=== PATIENT | female | born 1935 | race Caucasian/White ===

== ENCOUNTER 2016-09-22 07:36 | Emergency (ER) | payer MEDICARE, BC ==
[2016-09-22] MEDS ORDERED: Ibuprofen TAB* 600 MG PO ONE (08:10)
--- NOTE | 2016-09-22 09:00 | RAD ---
Indication: Bilateral knee pain. AP standing, lateral, patellofemoral views of both knees are reviewed. The right knee demonstrates no fracture. No joint effusion is noted. Left knee demonstrates no fracture. No joint effusion is noted. IMPRESSION: Unremarkable bilateral knee.
--- NOTE | 2016-09-22 09:01 | RAD ---
Indication: Left hip pain. Single view the pelvis and 2 views of left hip demonstrates marked degenerative changes of left hip. There is no fracture noted. Moderately exam degenerative changes are noted of the left hip. There is joint space narrowing, subchondral cyst formation and sclerosis noted. IMPRESSION: Degenerative joint disease in the left hip.
--- NOTE | 2016-09-22 21:48 | ED ---
Cortes Kenney SooYoung, scribed for Sandra Aguayo MD on 09/22/16 at 0802 . Lower Extremity - HPI Summary HPI Summary: An 80 y/o F RAYMOND presents to ED with c/o acute knee pain, L worse than R onset this AM after a fall. Hx of chronic L hip and knee pain since 1997. She was walking with her cane this AM when her legs gave out, she fell onto her knees onto a hard bathroom floor. Per daughter, pt was on her knees on the floor for approx one hour. She was able to bear weight, ambulate with the assistance of EMS. Associated sx: LE weakness, R knee ecchymosis. Rates her pain as 0 out of 10 at bedside. Denies: L hip pain, dizziness, CP, LOC, head trauma, neck nor back pain. No daily meds, NKA, no PCP. She saw Dr. Dan about two years ago who gave her a shot in the hip, which did not help her; also previously saw PT and a chiropractor which she felt worsened her hip and knee pain. She has not seen an orthopedist regarding the chronic LE pain. - History of Current Complaint Chief Complaint: EDGeneral Stated Complaint: LT KNEE/HIP PAIN Time Seen by Provider: 09/22/16 07:50 Hx Obtained From: Patient, Family/Firewall Engineer - daughter Mechanism Of Injury: Fall From A Standing Position Onset of Pain: Immediate, Prior to Arrival Onset/Duration: Still Present Severity Initially: Mild Severity Currently: Mild Pain Intensity: 0 Pain Scale Used: 0-10 Numeric Timing: Constant Location: Is Discrete @ - knees, left hip Character Of Pain: Dull Associated Signs And Symptoms: Positive: Bruising - R knee, where she was kneeling and trying to get up off floor after falling, Weakness, Knee Pain, Other - neg: CP, head trauma, right hip pain, back pain, neck pain. Negative: Dizziness, Syncope Aggravating Factor(s): Nothing Alleviating Factor(s): Nothing Able to Bear Weight: Yes - Allergies/Home Medications Allergies/Adverse Reactions: Allergies Allergy/AdvReac Type Severity Reaction Status Date / Time No Known Allergies Allergy Verified 09/22/16 07:56 Home Medications: Home Medications NK [No Home Medications Reported] 09/22/16 [History Confirmed 09/22/16] PMH/Surg Hx/FS Hx/Imm Hx Previously Healthy: Yes - pt denies pmhx, is on no meds, has no PCP Sensory History: Denies: Hx Eye Prosthesis Opthamlomology History: Denies: Hx Eye Prosthesis - Surgical History Surgery Procedure, Year, and Place: Cholecystectomy Infectious Disease History: No Infectious Disease History: Denies: Traveled Outside the [place] in Last 30 Days - Family History Known Family History: Positive: Other - pos: [place] - Social History Occupation: Retired Lives: With Family - daughter Alcohol Use: None Hx Substance Use: No Substance Use Type: Reports: None Hx Tobacco Use: Yes Smoking Status (MU): Former Smoker Review of Systems Constitutional: Negative Negative: Chest Pain Negative: Shortness Of Breath Gastrointestinal: Negative Positive: Arthralgia - bilat knees - L worse than R, left hip pain , Other - neg : R hip pain, neck pain, back pain, head trauma Positive: Bruising - R knee Neurological: Other - neg: dizziness Positive: Weakness. Negative: Syncope Psychological: Normal All Other Systems Reviewed And Are Negative: Yes Physical Exam Triage Information Reviewed: Yes Vital Signs On Initial Exam: Initial Vitals Temp Pulse Resp BP Pulse Ox 97.8 F 78 20 150/64 97 09/22/16 07:41 09/22/16 07:41 09/22/16 07:41 09/22/16 07:41 09/22/16 07:41 Vital Signs Reviewed: Yes Appearance: Positive: Well-Appearing - appears younger than stated age, No Pain Distress, Well-Nourished Skin: Positive: Warm, Skin Color Reflects Adequate Perfusion, Erythema @ - right knee, Other - neg: rash Head/Face: Positive: Normal Head/Face Inspection. Negative: Cephalohematoma Eyes: Positive: Conjunctiva Clear ENT: Positive: Normal ENT inspection Neck: Positive: Supple Respiratory/Lung Sounds: Positive: Clear to Auscultation, Breath Sounds Present , Other - no respiratory distress Cardiovascular: Positive: RRR, Other - pulses normal, brisk capillary refill, distal pulses intact. Negative: Murmur, Leg Edema Left, Leg Edema Right Abdomen Description: Positive: Nontender, Soft. Negative: Distended, Guarding, Pulsatile Mass Musculoskeletal: Positive: Strength/ROM Intact, Other - point tenderness to lateral L hip; diffusely tender over L patella; FROM at hip and knee; knee ligaments are stable; NEG calf tenderness. Negative: Kofi Sign Left, Kofi Sign Right, Edema Left, Edema Right Neurological: Positive: Sensory/Motor Intact, Alert, Oriented to Person Place, Time, Facial Symmetry, Speech Normal Psychiatric: Positive: Normal Diagnostics - Vital Signs Vital Signs Temp Pulse Resp BP Pulse Ox 09/22/16 07:41 97.8 F 78 20 150/64 97 - Laboratory Lab Statement: Any lab studies that have been ordered have been reviewed, and results considered in the medical decision making process. - Radiology L HIP Xray Interpretation: No Acute Changes - IMPRESSION: Degenerative joint dz in L hip. Radiology Interpretation Completed By: Radiologist BILAT KNEES Xray Interpretation: No Acute Changes - Unremarkable bilat knee Radiology Interpretation Completed By: Radiologist Re-Evaluation - Re-Evaluation 1 Re-Evaluation Time: 11:36 Change: Unchanged Comment: Discussing XR results with pt and daughter and dispo. Pt voiced understanding. Lower Extremity Course/Dx - Course Course Of Treatment: Allergies noted. Hypertensive BP reading (150/94); patient referred to PCP within 1 day-4 weeks for follow-up. Pt is an 80 y/o F BIBA presenting with c/o acute knee pain, L worse than R onset this AM after a fall. Hx of chronic L hip and knee pain since 1997. Walking with her cane when her legs gave out, fell onto her knees onto hard floor. Per daughter, pt was on her knees on the floor for approx one hour. She was able to bear weight, ambulate with the assistance of EMS. Associated sx: LE weakness, R knee ecchymosis. Rates her pain as 0 out of 10 at bedside. Denies: R hip pain, dizziness, CP, LOC , head trauma, neck nor back pain. No daily meds, NKA, no PCP. She has not seen an orthopedist regarding the chronic LE pain. Pt given Motrin in ED. L hip and bilat knee XRs showed no acute findings. Will D/C home without meds, pt given walker. F/U with ortho and PCP. - Diagnoses Provider Diagnoses: Elevated blood pressure reading without diagnosis of hypertension, Fall from standing, Degenerative joint disease of left hip, Bilateral knee pain Discharge - Discharge Plan Condition: Stable Disposition: HOME Patient Education Materials: Knee Pain (ED), Arthritis (ED) Referrals: [facility] [place] [facility] REFERRAL [Outside] - As Soon As Possible Bijan Brown MD [Medical Doctor] - 1 Week No Primary Care Phys,NOPCP [Primary Care Provider] - (Follow up within 1 day to 4 weeks for blood pressure evaluaton.) Additional Instructions: Your blood pressure reading today was 150/94, which is HYPERTENSIVE. Establish with a new primary care provider and follow-up within 4 weeks for blood pressure readings and further evaluation. If you cant find a provider, try to check your blood pressure on your own and see if its above 120/80. If so, follow up for further evaluation and treatment. Your xrays show degenerative changes. You should follow up with orthopedics for further evaluation and treatment. Use the cane and walker for ambulation. You may continue tylenol or ibuprofen for pain. Return to the ED if any new or worsening symptoms. The documentation as recorded by the Cortes kent SooYoung accurately reflects the service I personally performed and the decisions made by , Sandra Aguayo MD.
== END 2016-09-22 12:14 | disposition home or self-care (01) ==
LOC: ED 07:36
DX: R03.0 Elevated blood-pressure reading, without diagnosis of hypertension (principal); M16.12 Unilateral primary osteoarthritis, left hip; M25.562 Pain in left knee; Z87.891 Personal history of nicotine dependence; M25.561 Pain in right knee
CPT/HCPCS: 99282; A9270-GY

== ENCOUNTER 2016-11-09 11:00 | Inpatient (IN) | payer MEDICARE, BC ==
--- NOTE | 2016-10-27 22:33 | HP ---
HISTORY AND PHYSICAL: DATE OF SURGERY: 11/09/16 DATE OF OFFICE VISIT: 10/27/16 SURGEON: Lisa Sharpe MD * (DICTATED BY LILIANA ALEXIS) PROCEDURE: Left total hip arthroplasty. CHIEF COMPLAINT: Left hip pain. HISTORY OF PRESENT ILLNESS: Ms. Bear is an 81-year-old female with complaints of left hip pain. She has failed conservative management, has elected to proceed with a left total hip arthroplasty, which is scheduled for with Dr. Sharpe. PAST MEDICAL HISTORY: Heart murmur. PAST SURGICAL HISTORY: Cholecystectomy. CURRENT MEDICATIONS: None. ALLERGIES: None. FAMILY HISTORY: Cancer and dementia. SOCIAL HISTORY: She is an 81-year-old female, who lives with her daughter. She does not smoke, use drugs, or alcohol. REVIEW OF SYSTEMS: A complete 14-point review of systems was reviewed with the patient, was all negative or noncontributory. PHYSICAL EXAMINATION GENERAL: She is well developed, well nourished, in no acute distress. VITAL SIGNS: She stands 5 feet 6 inches tall, weighs 154 pounds, her blood pressure is 140/72, heart rate is 65. HEENT: Normocephalic, atraumatic. NECK: Supple. No palpable lymph nodes. PULMONARY: Lungs are clear to auscultation bilaterally. CARDIO: Regular rate and rhythm. Strong S1 and S2. ABDOMEN: Soft, nontender, nondistended. NEUROLOGIC: She is alert and oriented x3. Cranial nerves II through XII are intact. MUSCULOSKELETAL: Left lower extremity, the skin is intact. There are no open wounds or abrasions. She has decreased range of motion over the left hip. She walks with antalgic type gait. Her lower extremity muscle group strength is intact at 5/5. She has 2+ dorsalis pedis pulses and intact sensation. ASSESSMENT AND PLAN: Ms. Bear is an 81-year-old female with complaints of left hip pain secondary to advanced osteoarthritis. She has failed conservative management and has elected to proceed with a left total hip arthroplasty, which is scheduled for 11/09/[address] Sharpe discussed the risks and benefits of the surgery and all of her questions were answered. Percocet, Coumadin and Colace were sent to her pharmacy for postoperative pain control and DVT prophylaxis. She will see Dr. Sharpe back in 2 weeks after the surgery. LILIANA ALEXIS [id number]/[facility] #: [id number] [facility]ENTER[facility]
[~2016-11-09 11:00] MED LIST: Buffered Lidocaine 0.9% SYRIN* 5 ML/SYR SYRINGE INTRADERM ONE; Famotidine IV* 10 MG/ML 2 ML (20 mg) IV ONE
[2016-11-09] MEDS ORDERED: Famotidine IV* 10 MG/ML 2 ML (20 mg) ONE (11:36)
[2016-11-09] MEDS ORDERED: ceFAZolin 2 GM PREMIX (*) 50 ML IVPB ONE (11:37)
[2016-11-09] MEDS ORDERED: Lidocaine 2% PF * 5 ML VIAL ONE (13:18)
[2016-11-09] MEDS ORDERED: Ondansetron INJ* 2 MG/ML VIAL ONE (13:18)
[2016-11-09] MEDS ORDERED: Ketorolac INJ* 30 MG/ML 1 ML VIAL ONE (13:18)
[2016-11-09] MEDS ORDERED: KETAMINE HCL* 50 MG/ML 10 ML VIAL ONE (13:18)
[2016-11-09] MEDS ORDERED: Cisatracurium* 2 MG/ML MDV 5 ML ONE (13:18)
[2016-11-09] MEDS ORDERED: Propofol* 10 MG/ML 20 ML BTL IV PUSH ONE (13:18)
[2016-11-09] MEDS ORDERED: Dexamethasone IV* 4 MG/ML 1 ML (4 MG) ONE (13:18)
[2016-11-09] MEDS ORDERED: fentaNYL* 50 MCG/ML 2 ML VIAL (100 MCG VIAL) ONE (13:18)
[2016-11-09] MEDS ORDERED: Midazolam* 1 MG/ML 5 ML VIAL (5 MG) ONE (13:19)
[2016-11-09] MEDS ORDERED: EPHEDrine (Pressors)* 50 MG/ML VIAL ONE (14:26)
[2016-11-09] MEDS ORDERED: diPHENhydraMINE IV* 50 MG/ML 1 ml VIAL (BENADRYL) IV PRN (15:17)
[2016-11-09] MEDS ORDERED: Magnesium Hydroxide LIQ* 30 ML UDC PO PRN (15:17)
[2016-11-09] MEDS ORDERED: Ondansetron INJ* 2 MG/ML VIAL IV PRN ×2 (15:17→15:34)
[2016-11-09] MEDS ORDERED: Temazepam CAP* 15 MG PO PRN (15:17)
[2016-11-09] MEDS ORDERED: Polyethylene Glycol 3350* 17 GM PACKET PO PRN (15:17)
[2016-11-09] MEDS ORDERED: oxyCODONE/Acetamin 5/325 MG* TAB PO PRN ×2 (15:17)
[2016-11-09] MEDS ORDERED: oxyCODONE TAB* 5 MG TAB PO PRN (15:17)
[2016-11-09] MEDS ORDERED: Morphine INJ* 2 MG/ML 1 ML SYRINGE (TWO MG - NEW SYRINGE VERSION) IV PRN (15:17)
[2016-11-09] MEDS ORDERED: Bupivacaine 0.5% SDV PF* 30 ML VIAL ONE (15:24)
[2016-11-09] MEDS ORDERED: fentaNYL* 50 MCG/ML 2 ML VIAL (100 MCG VIAL) IV PRN (15:34)
[2016-11-09] MEDS ORDERED: HYDROmorphone INJ* 1 MG/ML CARPUJECT SYRINGE IV PRN (15:34)
[2016-11-09] MEDS ORDERED: HYDROmorphone INJ* 1 MG/ML CARPUJECT SYRINGE ONE (17:18)
[2016-11-09] MEDS ORDERED: oxyCODONE TAB* 5 MG TAB ONE (17:18)
--- NOTE | 2016-11-09 18:18 | RAD ---
INDICATION: Status post left hip arthroplasty TECHNIQUE: An AP view of the pelvis was obtained. FINDINGS: The hip prosthesis is anatomically aligned in the AP projection. Visualized bones are intact and appropriately aligned. IMPRESSION: Anatomic alignment of left hip prosthesis in the AP projection.
--- NOTE | 2016-11-09 18:19 | RAD ---
INDICATION: Status post left hip arthroplasty COMPARISON: Preoperative x-ray dated September 22, 2016 TECHNIQUE: 2 views of the left hip were obtained. FINDINGS: The left hip prosthesis is anatomically aligned in the AP and lateral projections. There is no periprostatic fracture or loosening. IMPRESSION: Anatomic alignment of recently placed left hip prosthesis.
[2016-11-09] MEDS: Enoxaparin(*) 30 MG/0.3 ML SYR SUBCUT SCH (18:31)
[2016-11-09] MEDS: Warfarin TAB(*) 6 MG PO ONE ×2 (18:31→18:34)
[2016-11-09] MEDS: Acetaminophen TAB* 325 MG PO PRN (20:19)
[2016-11-09] MEDS: Docusate CAP* 100 MG PO SCH (20:20)
[2016-11-09] MEDS: ceFAZolin 1 GM VIAL(*) 1 GM in NS 0.9% 50 ML* 50 ML IVPB SCH (20:20)
--- NOTE | 2016-11-09 21:16 | RAD ---
CPT II Codes: 6045F INDICATION: Left hip arthroplasty TECHNIQUE: Intraoperative fluoroscopy was provided during left hip arthroplasty. FINDINGS: A single AP film depicts anatomic alignment of the acetabular component and femoral shaft component of a left hip prosthesis. The femoral head prosthesis is currently absent. Fluoroscopy time: 1 second IMPRESSION: As above.
[2016-11-10] MEDS: Acetaminophen TAB* 325 MG PO PRN ×3 (00:21→08:36)
[2016-11-10] MEDS: ceFAZolin 1 GM VIAL(*) 1 GM in NS 0.9% 50 ML* 50 ML IVPB SCH ×2 (04:17→11:29)
--- NOTE | 2016-11-10 05:28 | OP ---
OPERATIVE REPORT: DATE OF OPERATION: 11/09/16 DATE OF : 31 SURGEON: Lisa Sharpe MD PROMOTION WRITER: LILIANA Zarate MsFaith Simpson did help throughout the procedure with preparation of the leg, wound retraction, manipu lation of the hip, and wound closure. ANESTHESIOLOGIST: Dr. Barnett. ANESTHESIA: General. PRE-OP DIAGNOSIS: Severe end stage degenerative osteoarthritis of the left hip joint. POST-OP DIAGNOSIS: Severe end stage degenerative osteoarthritis of the left hip joint. OPERATIVE PROCEDURE: Left total hip arthroplasty. HARDWARE USED: This is an uncemented Meño total hip arthroplasty hardware. For the cup, a 50B T ritanium cluster hole shell. A single 25-mm cancellous bone screw was used. For the insert a Tride nt X3 0-degree polyethylene insert 36B. For the femur, a size 2 Accolate TMZF for the 132-degree ne ck. For the head, a Biolox delta ceramic D40 femoral head 36 -2.5. COMPLICATIONS: None. EBL: 250 cc. SPECIMENS: Femoral head and acetabular reaming sent to pathology. BRIEF HISTORY/INDICATION: Ms. Bear is an 81-year-old female with years of increasingly severe lef t hip pain. She failed conservative treatment with antiinflammatory pain medications, physial thera py, and ambulatory assistive devices. X-rays confirmed ecna-tz-hais severe end-stage arthritis of t he hip. Due to continued pain and decreased quality of life she elected to undergo left total hip a rthroplasty. Informed consent was obtained from the patient. She understood the risks of the proce dure, included but were not limited to bleeding, infection, damage to nearby structures, continued p ain, need for further surgery, intraoperative fracture, nerve palsy, hardware failure or loosening, dislocation, leg length discrepancy, stroke, heart attack, blood clot and . She wished to proc eed. INTRAOPERATIVE FINDINGS: Intraoperatively the patient was noted to have severe end- stage arthritis . She did have complete loss of cartilage and subchondral sclerosis as well as cyst formation. DESCRIPTION OF PROCEDURE: Ms. Bear was identified in the preanesthesia unit. Her left lower extre mity was marked as the correct operative side. Informed consent was signed and placed in the chart. The patient was taken to the operating room and placed under general anesthesia. A Coto catheter was placed. She was placed in the right lateral decubitus position on the PEG board. All bony pro minences were well padded. Left lower extremity was prepped and draped in the usual sterile fashion . Preop time-out was made to correctly identity the patient's side and site. Appropriate periopera tive antibiotics were given within 1 hour of incision. A 10-cm posterior hip incision was made with a 10 blade. This was carried down to the lateral fasci al layer. Lateral fascial layer was then incised in line with the skin incision. A Charnley retrac tor was placed. The piriformis and conjoint tendons were identified and elevated off the posterolat eral femur using electrocautery. These were tagged with #5 Ethibonds. Next, the electrocautery was used to make a posterolateral capsular flap and this was also tagged wi th #5 Ethibonds. The hip was carefully dislocated. Lesser troch to the center of the femoral head measured 52 mm. O scillating saw was used to make appropriate femoral neck cut. Femoral head was sent to pathology. The femur was carefully retracted anteriorly. After appropriate placement of retractor the acetabul um was visualized. Long-handled knife was used to remove any remaining labrum from the acetabular r im. The acetabulum sequentially reamed up to a size #49. Good bleeding subchondral bone bed was ob tained. A 49 trial had excellent fit and stability. Final implant chosen was a Tritanium cluster h ole shell size 50D. This was impacted into the acetabulum without difficulty. Good stability was o btained. Anteversion and abduction angle were satisfactory. A single 25-mm screw was placed in the superior posterior quadrant for extra stability. The liner chosen was a Trident X3 0 degree polyet hylene insert 36B. Stability of the liner was checked and rechecked and noted to be stable. Attention was turned next to preparation of the femur. Proximal femoral canal was entered using a c anal finder. The femur was sequentially broached up to a size 2. Size 2 broach had good fit and ant eversion. A 132-neck trial was placed as well as a 36 +0 femoral head trial. Lesser troch to the c enter of the femoral head measured 52 mm. The hip was reduced and taken through a range of motion. The hip was stable in all positions. There was good soft tissue tension and appropriate leg length s. The hip was carefully dislocated. All trials were carefully removed. Final implant chosen was an A ccolade TMZF size 2 with a 132-degree neck. This was carefully impacted into the femoral canal with out difficulty. There was good stability. The implant did sit up 2 mm higher than the broach. The refore final implant chosen for the head was a ceramic Biolox delta V4 V36 -2.5 femoral head. This w as impacted on to the femoral neck without difficulty. Lesser troch to center of the femoral head m easured 52 mm. The hip was reduced and taken through a range of motion. The hip was stable in all positions. Soft tissue tension and leg lengths were deemed to be appropriate. The hip was copiously irrigated with sterile saline. Previously tagged capsule and tendons were reapproximated to the posterolateral fe mur through 2 trochanteric drill holes. The hip was copiously irrigated with sterile saline. Lateral fascia layer was closed using interrup jaime #1 Vicryl. The rest of the incision was closed in a layered fashion using 2-0 Vicryl. Skin was closed using running 3-0 Monocryl and Dermabond. Adaptic, 4x4s, and paper tape were used to cover the incision. 0.5% Marcaine was used for local anesthetic. The patient's anesthesia was carefully reversed without difficulty. She was taken to the PACU in stable condition. Intended weightbearing will be weightbearing as tolerated. Intended DVT prophylaxis will be Coumadin with a Lovenox bridge . [id number]/[facility] #: [id number]
--- NOTE | 2016-11-10 06:18 | CONS ---
CC: Dr. Dan; Dr. Sharpe * CONSULTATION REPORT: DATE OF ADMISSION: 11/09/16 DATE OF CONSULT: 11/09/16 PRIMARY CARE PROVIDER: Dr. Dan REQUESTING PHYSICIAN FOR CONSULT: Dr. Sharpe ATTENDING PHYSICIAN WHILE IN THE HOSPITAL: Dr. Edwin Ruth (report dictated by Jonathan Guillermo NP). REASON FOR MEDICAL CONSULTATION: Evaluation and medical management of comorbid medical conditions. HISTORY OF PRESENT ILLNESS: Refer to Dr. Sharpe's H and P for further details. In short, Ms. Bear is an 81-year-old female patient with really no significant past medical history. She was recently found to have a murmur, had extensive workup preoperatively for this. Although, she does state that she has been having significant amount of pain in her hip, particularly on the left side. She has failed conservative therapy. She was affecting her activities of daily living and it was felt she would benefit from a total hip replacement. So she was evaluated by Dr. Sharpe, it was felt that a total hip would be necessary so she underwent the procedure today electively. The patient was evaluated in the PACU. She had general anesthetic. She is not really complaining of any pain currently. She is not offering any complaints, pretty drowsy. She denies any chest pain or shortness of breath and again will awaken to her name, but then quickly falls back asleep. Because of her history of her heart murmur we were asked to evaluate in consult. PAST MEDICAL HISTORY: Significant for: 1. Osteoarthritis. 2. She has a history of aortic stenosis. PAST SURGICAL HISTORY: She has had a laparoscopic cholecystectomy and now a total hip arthroplasty. MEDICATIONS: Home medications denied. ALLERGIES: Allergies to medications denied. FAMILY HISTORY: Unable to be obtained currently. SOCIAL HISTORY: She does not smoke. She does not drink. Surrogate decision maker is her daughter. REVIEW OF SYSTEMS: It is limited because she is still drowsy, but she is not having any chest pain or shortness of breath. The 14-systems attempted, but unable to obtain completely because of her recent general anesthetic. PHYSICAL EXAMINATION: Reveals vital signs blood pressure 145/63, pulse 70, respirations 16, O2 sat 98%, temperature 98.1. General: At this time, Ms. Bear is an 81-year-old female patient. She is in the PACU bed. She appears to be well nourished, well developed. HEENT: Head is atraumatic. Eyes: EOMs are intact. Sclerae anicteric. Not pale. Neck: Supple. Throat: Oral mucosa appears to be dry. No oropharyngeal erythema. Heart: Sounds S1 and S2. Regular rate and rhythm. She did have a grade 2-3 aortic murmur. Lungs: Clear to auscultation bilaterally. Abdomen: Soft, flat, nontender. Bowel sounds hypoactive. Extremities: Distal CSM checks were intact. She is moving all four extremities. Neurologically, she is very drowsy. She will awaken to her name. She will answer for some simple questions. Speech clear. Tongue was midline. No facial droop. She had no gross obvious focal deficits. Skin: Intact with the exception she has an excision to her right hip, clean, dry and intact. LABORATORY DATA/IMAGING STUDIES: Preop labs, WBC is 7.2, RBC of 4.81, hemoglobin of 14.3, hematocrit of 43, platelet count of 250, INR was 0.93. Sodium was 137, potassium 4.3, chloride 102, bicarb 29, BUN 11, creatinine 0.94. AST 18 and ALT 9. She had a preop x-ray which revealed no active cardiopulmonary disease. She had a preop stress test which showed normal cardiac stress test. She had a preop echo, shows an EF of 65% to 70%. She had diastolic dysfunction. She had mild-to- moderate aortic valve stenosis. She had severe aortic valve leaflet thickening. Severe calcification, trace mitral regurg, [id number] pulmonary hypertension. EKG preop shows a normal sinus rhythm, rate of 76, no ST elevations or T-wave inversions. Old medical records were reviewed. ASSESSMENT: Ms. Bear is an 81-year-old female patient coming in to the orthopedic services today for an elective total hip replacement. We were asked to evaluate in consult. RECOMMENDATIONS: At this point are: 1. Status post left total hip replacement, defer the management to Dr. Sharpe and her team. 2. Systolic ejection murmur, again I suspect this is probably from mild-to- moderate aortic stenosis. I would recommend follow up with her primary director of property management, and close follow up with her PCP. The plan will be not to make her hypotensive, to try to keep her slightly hypertensive at this point. We will continue to follow closely. She does not appear to have any symptoms from this. 3. Osteoarthritis, follow with primary. 4. DVT prophylaxis: We will defer to primary team. 5. Code status: Full code. 6. Fluid, electrolytes, and nutrition: She can have a regular diet. TIME SPENT: Time spent on the consult was 60 minutes, greater than half that time was spent [id number] with the patient obtaining my history and physical, the other half time was spent going over the plan of care with the patient and implementing the plan of care. I did discuss the plan of care with my attending, Dr. Ruth; he is in agreement. JONATHAN GUILLERMO NP [id number]/[facility] #: [id number] MTDBong
[2016-11-10 06:36] LABS: Hematocrit 31 % (35-47); Hemoglobin 10.4 g/dl (12.0-16.0)
[2016-11-10 06:49] LABS: Calcium 8.3 mg/dL (8.6-10.3); Potassium 4.5 mmol/L (3.5-5.0)
[2016-11-10] MEDS: Docusate CAP* 100 MG PO SCH ×2 (08:36→21:24)
--- NOTE | 2016-11-10 08:41 | PN ---
Subjective Date of Service: 11/10/16 Interval History: Hospitalist Progress Note POD # 1 Elective Total Left Hip Patient seen and examined at bedside. Presently sitting in cardiac chair finishing breakfast. Nausea has resolved. Nurses report some delirium during the night. Only requiring Tylenol for pain control at this point. Patient has already walked from her room to the [address] way with the aid of a walker and tolerated it well. Family History: Unchanged from Admission Social History: Unchanged from Admission Past Medical History: Unchanged from Admission Objective Active Medications: Acetaminophen (Tylenol Tab*) 650 mg PO Q4H PRN PRN Reason: PAIN OR TEMPERATURE Diphenhydramine HCl (Benadryl Iv*) 25 mg IV Q6H PRN PRN Reason: itching Docusate Sodium (Colace Cap*) 100 mg PO BID MK Enoxaparin Sodium (Lovenox(*)) 30 mg SUBCUT Q24H MK Cefazolin Sodium 1 gm/ Sodium (Chloride) 50 mls @ 200 mls/hr IVPB Q8H [facility] Stop: 11/10/16 12:14 Lactulose (Lactulose*) 30 ml PO Q6H PRN PRN Reason: constipation Magnesium Hydroxide (Milk Of Magnesia Liq*) 30 ml PO Q6H PRN PRN Reason: constipation Morphine Sulfate (Morphine Inj (Syringe)*) 2 mg IV Q2H PRN PRN Reason: PAIN Ondansetron HCl (Zofran Inj*) 4 mg IV Q6H PRN PRN Reason: nausea Oxycodone HCl (Roxycodone Tab*) 10 mg PO Q4H PRN PRN Reason: PAIN Oxycodone/Acetaminophen (Percocet 5/325 Tab*) 1 tab PO Q4H PRN PRN Reason: PAIN Oxycodone/Acetaminophen (Percocet 5/325 Tab*) 2 tab PO Q4H PRN PRN Reason: PAIN Pharmacy Profile Note (Coumadin Daily Reminder*) 1 note FOLLOW UP 1700 [facility] Polyethylene Glycol/Electrolytes (Miralax*) 17 gm PO DAILY PRN PRN Reason: Constipation Temazepam (Restoril Cap*) 15 mg PO BEDTIME PRN PRN Reason: INSOMNIA Warfarin Sodium (Coumadin Tab(*)) 6 mg PO ONCE@1700 MK PRN Reason: Protocol Stop: 11/10/16 17:01 Vital Signs: Temp Pulse Resp BP Pulse Ox 98.2 F 77 16 105/51 97 11/10/16 07:32 11/10/16 07:32 11/10/16 08:41 11/10/16 07:32 11/10/16 08:41 11/10/16 11/10/16 11/10/16 06:20 06:20 06:20 Hgb 10.4 L Hct 31 L INR (Anticoag Therapy) 1.06 Sodium 136 Potassium 4.5 Chloride 105 Carbon Dioxide 27 Anion Gap 4 BUN 12 Creatinine 0.86 Est GFR ( Amer) 81.0 Est GFR (Non-Af Amer) 63.0 BUN/Creatinine Ratio 14.0 Glucose 122 H Calcium 8.3 L Oxygen Devices in Use Now: None Appearance: Elderly female sitting up in cardiac chair enjoying breakfast Eyes: No Scleral Icterus, PERRLA Ears/Nose/Mouth/Throat: NL Teeth, Lips, Gums, Clear Oropharnyx, Mucous Membranes Moist Neck: NL Appearance and Movements; NL JVP, Trachea Midline, No Thyroid Enlargement, Masses Respiratory: Symmetrical Chest Expansion and Respiratory Effort Cardiovascular: - - positive Systolic- ejection murmur with a history of aortic stenosis Abdominal: NL Sounds; No Tenderness; No Distention Lymphatic: No Cervical Adenopathy Extremities: No Edema, No Clubbing, Cyanosis, - - Positive pedal pulses, extremeties warm with good mobility Skin: No Rash or Ulcers, - - dressing to left hip, dry & intact, no drainage noted Neurological: Alert and Oriented x 3, - - Nursing states some delerium during the night, appears to have cleared at this time Lines/Tubes/Other Access: Clean, Dry and Intact Coto - Nursing states will d/c this am, Clean, Dry and Intact Peripheral IV - Left arm Saline locked Nutrition: Taking PO's - Nausea has improved Result Diagrams: 11/10/16 06:20 11/10/16 06:20 Diagnostic Imaging: INDICATION: Status post left hip arthroplasty TECHNIQUE: 2 views of the left hip were obtained. FINDINGS: The left hip prosthesis is anatomically aligned in the AP and lateral projections. There is no periprostatic fracture or loosening. IMPRESSION: Anatomic alignment of recently placed left hip prosthesis. Assess/Plan/Problems-Billing Assessment: Mrs. Bear is an 81 year old female who we were asked to consult due to multiple co-morbidities. POD #1. Nausea has resolved. Ambulated from her room to the hallway prior to breakfast with the help of physical therapy and a walker. - Patient Problems (1) Status post total hip replacement, left Current Visit: Yes Comment: POD # 1 managed by surgery (2) Systolic ejection murmur Comment: History of Mild to Moderat Systolic Murmmur, Recommend following up with primary after discharge. Asymtomatic at this time. (3) Osteoarthritis Comment: Followed by Primary (4) DVT prophylaxis Current Visit: Yes Comment: Will Defer to Primary Team (5) Full code status Current Visit: Yes Comment: Full code~ Lives with her daughter who is her Surrogate (6) Fluid, electrolyes and nutrition Current Visit: Yes Comment: Nausea and vomiting has resolved. Tolerating a regular diet breakfast. Status and Disposition: Inpatient. Anticipate discharge per ortho. Lives with her daughter.
--- NOTE | 2016-11-10 11:05 | PN ---
Progress Note - Progress Note Date of Service: 11/10/16 SOAP: Subjective: 81 y/o female s/p L JESUS 11/[address] Sharpe. Patient reports dull ache, pain well under controlled, walking with physical therapy without difficulty, no complaints/ questions regarding surgery VSS afebrile overnight. Objective: General- well appearing, nad, sitting in chair, daughter by side. AO MSK- L hip dressing intact, no drainage, DF/PF + b/l, negative homans, sensation grossly intact Vital Signs Temp 98.2 F 11/10/16 07:32 Pulse 77 11/10/16 07:32 Resp 16 11/10/16 08:41 BP 105/51 11/10/16 07:32 Pulse Ox 97 11/10/16 08:41 Intake & Output 11/09/16 11/10/16 11/10/16 18:59 06:59 18:59 Intake Total 2150 480 120 Output Total 150 525 Balance 1999 -45 120 Weight 153 lb Intake: IV Fluids 2150 LR 2100 NS 100ML, Cefazolin 2G 50 Oral 480 120 Output: Coto 150 325 Emesis 200 Other: # Bowel Movements 0 Assessment: Stable 81 y/o female s/p L JESUS 11/[address] Sharpe. Plan: - DVT prophylaxis- couamdin, lovenox. 6 mg tonight - COntinue PT - Continue current pain regimen - Possible D/C home tomorrow Active Medications Generic Name Dose Route Start Last Admin Trade Name Freq PRN Reason Stop Dose Admin Acetaminophen 650 mg 11/09/16 15:17 11/10/16 08:36 Tylenol Tab* PO 650 mg Q4H PRN Administration PAIN OR TEMPERATURE Diphenhydramine HCl 25 mg 11/09/16 15:17 Benadryl Iv* IV Q6H PRN itching Docusate Sodium 100 mg 11/09/16 21:00 11/10/16 08:36 Colace Cap* PO 100 mg BID KM Administration Enoxaparin Sodium 30 mg 11/09/16 16:00 11/09/16 18:31 Lovenox(*) SUBCUT 30 mg Q24H MK Administration Cefazolin Sodium 1 gm/ Sodium 50 mls @ 200 mls/hr 11/09/16 20:00 11/10/16 04: 17 Chloride IVPB 11/10/16 12:14 200 mls/hr Q8H MK Administration Lactated Ringer's 1,000 mls @ 75 mls/hr 11/09/16 16:00 11/09/16 19:09 Lactated Ringers 1000 Ml Bag* IV 75 mls/hr PER RATE MK Administration Lactulose 30 ml 11/09/16 15:17 Lactulose* PO Q6H PRN constipation Magnesium Hydroxide 30 ml 11/09/16 15:17 Milk Of Magnesia Liq* PO Q6H PRN constipation Morphine Sulfate 2 mg 11/09/16 15:17 Morphine Inj (Syringe)* IV Q2H PRN PAIN Ondansetron HCl 4 mg 11/09/16 15:17 11/09/16 20:20 Zofran Inj* IV 4 mg Q6H PRN Administration nausea Oxycodone HCl 10 mg 11/09/16 15:17 11/09/16 17:20 Roxycodone Tab* PO 10 mg Q4H PRN Administration PAIN Oxycodone/Acetaminophen 1 tab 11/09/16 15:17 Percocet 5/325 Tab* PO Q4H PRN PAIN Oxycodone/Acetaminophen 2 tab 11/09/16 15:17 Percocet 5/325 Tab* PO Q4H PRN PAIN Pharmacy Profile Note 1 note 11/10/16 17:00 Coumadin Daily Reminder* FOLLOW UP 1700 [facility] Polyethylene Glycol/Electrolytes 17 gm 11/09/16 15:17 Miralax* PO DAILY PRN Constipation Temazepam 15 mg 11/09/16 15:17 Restoril Cap* PO BEDTIME PRN INSOMNIA Warfarin Sodium 6 mg 11/10/16 17:00 Coumadin Tab(*) PO 11/10/16 17:01 ONCE@1700 [facility] Protocol
[2016-11-10] MEDS: Enoxaparin(*) 30 MG/0.3 ML SYR SUBCUT SCH (16:30)
[2016-11-10] MEDS ORDERED: Warfarin TAB(*) 6 MG PO SCH (17:00)
[2016-11-11] MEDS: Acetaminophen TAB* 325 MG PO PRN ×3 (03:31→14:06)
[2016-11-11 08:43] LABS: Hematocrit 31 % (35-47); Hemoglobin 10.3 g/dl (12.0-16.0); Mean Platelet Volume 9 um3 (7.4-10.4)
[2016-11-11] MEDS: Docusate CAP* 100 MG PO SCH (09:38)
--- NOTE | 2016-11-11 10:02 | PN ---
Progress Note - Progress Note Date of Service: 11/11/16 SOAP: Subjective: Pt. is alert, pain controlled, wants to go home today. Objective: LLE - dressing changed, inc c/d/i. distally no edema, nvi. Vital Signs: Temp Pulse Resp BP Pulse Ox 98.9 F 87 16 108/63 93 11/11/16 07:41 11/11/16 07:41 11/11/16 08:00 11/11/16 07:41 11/11/16 08:00 Laboratory Results - last 24 hr 11/11/16 11/11/16 08:31 08:31 Hgb 10.3 L Hct 31 L Plt Count 181 MPV 9 INR (Anticoag Therapy) 2.27 H Assessment: 81 yo F pod 2 s/p LTHA Plan: pt/ot wbat with post hip precautions d/c lovenox hold coumadin tonight and tomorrow, recheck sunday with vns plan d/c to home today
[2016-11-11 11:38] VITALS: BP 100/58
--- NOTE | 2016-11-11 12:53 | PN ---
Subjective Date of Service: 11/11/16 Interval History: . Rounded on patient this AM No complaints denies CP,SOB,LH plan for dc later today no medical needs identified. Family History: Unchanged from Admission Social History: Unchanged from Admission Past Medical History: Unchanged from Admission Objective Active Medications: . Acetaminophen (Tylenol Tab*) 650 mg PO Q4H PRN PRN Reason: PAIN OR TEMPERATURE Last Admin: 11/11/16 09:39 Dose: 650 mg Diphenhydramine HCl (Benadryl Iv*) 25 mg IV Q6H PRN PRN Reason: itching Docusate Sodium (Colace Cap*) 100 mg PO BID [facility] Last Admin: 11/11/16 09:38 Dose: 100 mg Lactated Ringer's (Lactated Ringers 1000 Ml Bag*) 1,000 mls @ 75 mls/hr IV PER RATE [facility] Last Admin: 11/09/16 19:09 Dose: 75 mls/hr Lactulose (Lactulose*) 30 ml PO Q6H PRN PRN Reason: constipation Magnesium Hydroxide (Milk Of Magnesia Liq*) 30 ml PO Q6H PRN PRN Reason: constipation Morphine Sulfate (Morphine Inj (Syringe)*) 2 mg IV Q2H PRN PRN Reason: PAIN Ondansetron HCl (Zofran Inj*) 4 mg IV Q6H PRN PRN Reason: nausea Last Admin: 11/09/16 20:20 Dose: 4 mg Oxycodone HCl (Roxycodone Tab*) 10 mg PO Q4H PRN PRN Reason: PAIN Last Admin: 11/09/16 17:20 Dose: 10 mg Oxycodone/Acetaminophen (Percocet 5/325 Tab*) 1 tab PO Q4H PRN PRN Reason: PAIN Oxycodone/Acetaminophen (Percocet 5/325 Tab*) 2 tab PO Q4H PRN PRN Reason: PAIN Pharmacy Profile Note (Coumadin Daily Reminder*) 1 note FOLLOW UP [facility] Last Admin: 11/10/16 16:30 Dose: 1 note Polyethylene Glycol/Electrolytes (Miralax*) 17 gm PO DAILY PRN PRN Reason: Constipation Temazepam (Restoril Cap*) 15 mg PO BEDTIME PRN PRN Reason: INSOMNIA . Vital Signs 11/10/16 11/10/16 11/10/16 15:34 19:15 19:48 Temperature 98.2 F 98.8 F Pulse Rate 89 92 Respiratory 16 16 17 Rate Blood Pressure 131/54 126/53 (mmHg) O2 Sat by Pulse 98 99 Oximetry 11/10/16 11/11/16 11/11/16 23:42 03:37 07:41 Temperature 99.2 F 99.5 F 98.9 F Pulse Rate 89 84 87 Respiratory 16 16 20 Rate Blood Pressure 125/50 122/47 108/63 (mmHg) O2 Sat by Pulse 95 94 93 Oximetry Oxygen Devices in Use Now: None Appearance: NAD Eyes: No Scleral Icterus Ears/Nose/Mouth/Throat: NL Teeth, Lips, Gums Neck: NL Appearance and Movements; NL JVP Respiratory: Symmetrical Chest Expansion and Respiratory Effort Cardiovascular: NL Sounds; No Murmurs; No JVD Abdominal: NL Sounds; No Tenderness; No Distention Lymphatic: No Cervical Adenopathy Extremities: No Edema Skin: No Rash or Ulcers Neurological: Alert and Oriented x 3 Lines/Tubes/Other Access: Clean, Dry and Intact Peripheral IV Nutrition: Taking PO's Result Diagrams: 11/11/16 08:31 11/10/16 06:20 Diagnostic Imaging: . Assess/Plan/Problems-Billing . Assessment: Mrs. Bear is an 81 year old female who we were asked to consult due to multiple co-morbidities. Earlier nausea has resolved. Ambulated from her room to the hallway prior to breakfast with the help of physical therapy and a walker. - Patient Problems (1) Status post total hip replacement, left Current Visit: Yes Status: Acute Priority: High Code(s): Z96.642 - PRESENCE OF LEFT ARTIFICIAL HIP JOINT Comment: POD # 2 managed by surgery (2) DVT prophylaxis Current Visit: Yes Status: Acute Code(s): BAQ1940 - Comment: - As per Ortho (3) Fluid, electrolyes and nutrition Current Visit: Yes Status: Acute Priority: High Comment: Nausea and vomiting has resolved. Tolerating a regular diet breakfast. Good spirits (4) Full code status Current Visit: Yes Status: Acute Priority: High Code(s): Z78.9 - OTHER SPECIFIED HEALTH STATUS Comment: Full code ~ Lives with her daughter who is her Surrogate (5) Osteoarthritis Current Visit: Yes Status: Acute Priority: High Code(s): M19.90 - UNSPECIFIED OSTEOARTHRITIS, UNSPECIFIED SITE Comment: Followed by Primary Status and Disposition: Inpatient. Anticipate discharge per ortho. Lives with her daughter. medicine signing off...
--- NOTE | 2016-11-11 16:58 | DS ---
Amended report to enter co-signing doctor. DISCHARGE SUMMARY: DATE OF ADMISSION: 11/09/16 DATE OF DISCHARGE: 11/11/16 ATTENDING PHYSICIAN: Lisa Sharpe MD* (dictated by LILIANA Mazariegos). PRINCIPAL DIAGNOSIS: Left hip osteoarthritis. SECONDARY DIAGNOSIS: Heart murmur. PRINCIPAL PROCEDURE: Left total hip arthroplasty. REASON FOR HOSPITALIZATION: Ms. Bear is an 81-year-old female with complaints of left hip pain. She had failed conservative management and had elected to proceed with left total hip arthroplasty, which was done on 11/09/16 , by Dr. Sharpe. HOSPITAL COURSE: The patient was admitted to the hospital on 11/09/16 and underwent left total hip arthroplasty without any complications. She was transferred to the recovery room and subsequently to the surgical stay unit in a stable condition. Vital signs have remained stable throughout the hospital course, including she has remained afebrile. She has participated in physical therapy and done well with the exercises. Her hemoglobin and hematocrit remained stable. Hemoglobin was 10.3 and hematocrit 31 on the day of discharge. Daily INR checks were carried out with daily Coumadin doses. Her INR on the day of discharge was 2.27, and she was therapeutic at that level and her Coumadin was held. The patient has had no other complications during the hospital course and will be discharged on 11/11/16 to home, in a stable condition. DISCHARGE INSTRUCTIONS: The patient may resume a regular diet, increase fluids and fiber to prevent constipation. Continue to use stool softener. Call office if no bowel movement within 48 hours. Wound Care: Okay to shower, no bathing, swimming, submerging wound, use gentle soap, pat dry. Cover with gauze , Raul wrap or tape. Call orthopedic office for increased drainage, redness, increased pain or fever. Go to ER with shortness of breath or chest pain. Weightbearing as tolerated, continue hip precautions, do not cross legs or bend greater than 90 degrees or squat. Continue physical therapy and occupational therapy exercises as shown. Visiting home nurse to do wound checks. Visiting home nurse to draw blood work for INR on Sunday and . Coumadin dosing, hold Coumadin today, 11/11/16, and tomorrow, 11/12/16, redraw on Sunday, . Antibiotics are required prior to any dental work. FOLLOWUP: Follow up with Dr. Sharpe within 10 to 14 days, call the orthopedic office to schedule an appointment. LILIANA MAZARIEGOS [id number]/CPS #: [id number]
== END 2016-11-11 14:20 | disposition home health service (06) | DRG 470 ==
LOC: AA 11:12 → SSU 15:17
PROVIDERS: ADMIT Orthopaedic Surgery Adult Reconstructive Orthopaedic Surgery; ATTEND Orthopaedic Surgery Adult Reconstructive Orthopaedic Surgery
PROC: 0SRB04A Replacement of Left Hip Joint with Ceramic on Polyethylene Synthetic Substitute, Uncemented, Open Approach (ICD-10-PCS; principal; 2016-11-09 14:00)
DX: M16.12 Unilateral primary osteoarthritis, left hip (principal); I27.2 Other secondary pulmonary hypertension; I34.0 Nonrheumatic mitral (valve) insufficiency; M85.652 Other cyst of bone, left thigh; R01.1 Cardiac murmur, unspecified; R11.2 Nausea with vomiting, unspecified; I35.0 Nonrheumatic aortic (valve) stenosis; Z90.49 Acquired absence of other specified parts of digestive tract
CPT/HCPCS: 36415; 72170; 80048; 85014; 85018; 85049; 85610; A9270-GY; J0690; J1100; J1170; J1650; J1885; J2250; J2405; J2704; J3010

== ENCOUNTER 2019-09-23 06:56 | Inpatient (IN) ==
[2019-09-23] MEDS ORDERED: NS 0.9% 1000 ml BAG 1,000 ML IV SCH (07:15)
[2019-09-23 07:41] LABS: Hematocrit 37 % (35-47); Hemoglobin 12.4 g/dL (12.0-16.0); Mean Corpuscular HGB Conc 34 g/dL (31-36); Mean Corpuscular Hemoglobin 29 pg (27-31); Mean Corpuscular Volume 86 fL (80-97); Mean Platelet Volume 7.6 fL (7.4-10.4); Platelet Count 565 10^3/uL (150-450); Red Cell Distribution Width 14 % (10-15)
[2019-09-23 07:59] LABS: Albumin/Globulin Ratio 0.7 (1-3); BUN/Creatinine Ratio 15.7 (8-20); Calcium 8.5 mg/dL (8.6-10.3); EGFR African American 72.9 (>60); EGFR Non-African American 60.3 (>60); Globulin 4.1 g/dL (2-4); Magnesium 2.3 mg/dL (1.9-2.7); Potassium 3.9 mmol/L (3.5-5.0); Total Bilirubin 0.8 mg/dL (0.2-1.0); Total Protein 7.1 g/dL (6.4-8.9)
[2019-09-23] MEDS ORDERED: Iohexol 300 (CONTRAST) 10 ML SDV IV ONE (08:06)
[2019-09-23 08:13] LABS: Urine Appearance Cloudy; Urine Bilirubin Negative (Negative); Urine Blood Negative (Negative); Urine Color Amber; Urine Glucose Negative (Negative); Urine Ketones Trace (Negative); Urine Nitrite Negative (Negative); Urine Protein Negative (Negative); Urine Specific Gravity 1.016 (1.010-1.030); Urine Urobilinogen Positive (Negative)
[2019-09-23 08:32] LABS: ABS Basophils 0.1 10^3/ul (0-0.2); ABS Lymphocytes 1.5 10^3/ul (1.0-4.8); ABS Monocytes 1.5 10^3/ul (0-0.8); Eosinophil % 0.3 %; Lymphocyte % 9.2 %
[2019-09-23] MEDS ORDERED: Ondansetron 4 mg VIAL 2 MG/ML 2 ml VIAL IV PRN (10:17)
[2019-09-23] MEDS ORDERED: Morphine 2 MG/ML SYRINGE IV PRN (10:19)
[2019-09-23] MEDS: NS 0.9% w/ 20 Meq KCL 1000 ml 1,000 ML IV SCH (11:58)
[2019-09-23] MEDS: Enoxaparin 40 MG/0.4 ML SYR SUBCUT SCH (11:58)
[2019-09-24 05:54] LABS: ABS Basophils 0.1 10^3/ul (0-0.2); ABS Lymphocytes 1.5 10^3/ul (1.0-4.8); ABS Monocytes 1.5 10^3/ul (0-0.8); ABS Neutrophils 12.8 10^3/ul (1.5-7.7); Eosinophil % 0.1 %; Hematocrit 35 % (35-47); Hemoglobin 11.9 g/dL (12.0-16.0); Lymphocyte % 9.3 %; Mean Corpuscular HGB Conc 34 g/dL (31-36); Mean Corpuscular Hemoglobin 29 pg (27-31); Mean Corpuscular Volume 86 fL (80-97); Platelet Count 522 10^3/uL (150-450); Red Blood Count 4.04 10^6 /uL (3.70-4.87); Red Cell Distribution Width 14 % (10-15); White Blood Count 15.8 10^3/uL (3.5-10.8)
[2019-09-24 06:06] LABS: Potassium 4.3 mmol/L (3.5-5.0)
[2019-09-24 06:12] LABS: BUN/Creatinine Ratio 14.1 (8-20); EGFR African American 84.9 (>60); EGFR Non-African American 70.2 (>60)
[2019-09-24] MEDS: NS 0.9% w/ 20 Meq KCL 1000 ml 1,000 ML IV SCH (06:16)
[2019-09-24] MEDS: Polyethylene Glycol 3350 17 GM PACKET PO PRN (11:06)
[2019-09-24] MEDS: Enoxaparin 40 MG/0.4 ML SYR SUBCUT SCH (11:06)
[2019-09-25 05:44] LABS: ABS Basophils 0.1 10^3/ul (0-0.2); ABS Lymphocytes 1.6 10^3/ul (1.0-4.8); ABS Monocytes 1.2 10^3/ul (0-0.8); ABS Neutrophils 12.5 10^3/ul (1.5-7.7); Eosinophil % 0.2 %; Hematocrit 34 % (35-47); Hemoglobin 11.5 g/dL (12.0-16.0); Lymphocyte % 10.6 %; Mean Corpuscular HGB Conc 34 g/dL (31-36); Mean Corpuscular Hemoglobin 29 pg (27-31); Mean Corpuscular Volume 86 fL (80-97); Mean Platelet Volume 7.7 fL (7.4-10.4); Platelet Count 546 10^3/uL (150-450); Red Blood Count 3.96 10^6 /uL (3.70-4.87); Red Cell Distribution Width 14 % (10-15); White Blood Count 15.4 10^3/uL (3.5-10.8)
[2019-09-25 06:01] LABS: BUN/Creatinine Ratio 12.5 (8-20); Calcium 8.4 mg/dL (8.6-10.3); EGFR African American 93.2 (>60); Potassium 4.2 mmol/L (3.5-5.0)
[2019-09-25] MEDS: Enoxaparin 40 MG/0.4 ML SYR SUBCUT SCH (11:09)
[2019-09-25] MEDS: Polyethylene Glycol 3350 17 GM PACKET PO PRN (13:14)
[2019-09-25] MEDS: D5W 1000 ml BAG 1,000 ML IV SCH (16:58)
[2019-09-26] MEDS: D5W 1000 ml BAG 1,000 ML IV SCH (03:30)
[2019-09-26] MEDS: Enoxaparin 40 MG/0.4 ML SYR SUBCUT SCH (11:47)
[2019-09-26] MEDS ORDERED: fentaNYL PATCH 12 MCG/HR 1 PATCH TRANSDERM SCH (13:00)
[2019-09-26] MEDS: fentaNYL Patch Check Q Shift NOTE FOLLOW UP SCH (19:01)
[2019-09-27] MEDS: D5W 1000 ml BAG 1,000 ML IV SCH (01:59)
[2019-09-27] MEDS: fentaNYL Patch Check Q Shift NOTE FOLLOW UP SCH (06:59)
[2019-09-27 07:49] VITALS: BP 133/75
[2019-09-27] MEDS ORDERED: Ondansetron ODT 4 mg TAB 4 MG TAB SL PRN (08:33)
== END 2019-09-27 10:45 | disposition home or self-care (01) | DRG 754 ==
LOC: ED 06:56 → MED 10:57
PROVIDERS: ADMIT Internal Medicine; ATTEND Internal Medicine